=== PATIENT | female | born 1990 | race Caucasian/White ===

== ENCOUNTER 2022-10-30 13:22 | Emergency (ER) | payer OTHER ==
[~2022-10-30] VITALS: Ht 157.5 cm; Wt 104.5 kg
[~2022-10-30 13:22] MED LIST: AMOXICILLIN 8751 TAB PO; TINDAMAX 500MG500 M1 PO; ZOFRAN ODT4 MG PO
[2022-10-30 13:30] VITALS: BP 123/83; TEMP 98.1
[2022-10-30] MEDS ORDERED: NORCO 325 MG-51 TAB PO ×2 (14:22)
[2022-10-30] MEDS ORDERED: AKTOB 5 ML5 ML OP (14:22)
[2022-10-30 14:42] VITALS: PULSE 90
== END 2022-10-30 14:42 | disposition home or self-care (01) ==
LOC: COL.ER 13:22
DX: H10.9 Unspecified conjunctivitis (principal); Z88.1 Allergy status to other antibiotic agents; Z28.310 Unvaccinated for COVID-19